=== PATIENT | female | born 1985 | race Caucasian/White ===

== ENCOUNTER 2016-08-29 14:57 | Emergency (ER) | payer OTHER ==
[~2016-08-29 14:57] MED LIST: MOTR200T44 PO; TYLE167L PO
[2016-08-29] MEDS ORDERED: CIPROFLOXACIN 500 MG TAB As Ordered ONE (18:37)
--- NOTE | 2016-08-29 18:44 | EDDOCDS ---
Physician Documentation [facility] Name: Zee Hope Age: 31 yrs Sex: Female : 1985 Arrival Date: 08/29/2016 Time: 14:57 Bed I6 / 28 Private MD: Gerber Flores R. Disposition: 08/29/16 18:33 Discharged to Home/Self Care. Impression: Urinary tract infection, site not specified, Strain of muscle, fascia and tendon of abdomen. - Condition is Stable. - Discharge Instructions: Muscle Strain, Urinary Tract Infection. - Prescriptions for Cipro 500 mg Oral Tablet - take 1 tablet by ORAL route every 12 hours; 10 tablet. - Medication Reconciliation, Local Pharmacy Hours form. - Follow up: Gerber Flores; When: Call to arrange an appointment; Reason: Recheck today's complaints, Continuance of care. - Problem is new. - Symptoms are unchanged. Historical: - Allergies: no known allergies; - Home Meds: 1. none - PMHx: Kidney stones; - PSHx: Tonsillectomy; Tubal ligation; wisdom teeth extraction; lithroscopy; - Social history: Smoking status: Patient states was never smoker of tobacco. No barriers to communication noted, The patient speaks fluent Pashto, Speaks appropriately for age. - Family history: Not pertinent. - : The pt / caregiver states he / she is not on anticoagulants. Home medication list is obtained from the patient. - Exposure Risk Screening:: None identified. 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 4 in. (162.56 cm); Pain 4/10; 18:41 BP 140 / 75; Pulse 80; Resp 18; Temp 99.5(TE); Pulse Ox 100% on R/A; Pain 5/10; ar3 14:58 Body Mass Index 20.08 (53.07 kg, 162.56 cm) ct3 MDM: 17:48 UCG by Nursing ordered. mo1 17:50 UA Ordered. EDMS 17:50 Urine Culture Ordered. EDMS 18:08 Financial registration complete. gjb 18:11 UA Reviewed. mo1 18:14 [facility] Payment Agreement was scanned into [employer] and attached to record. gjb 18:33 Ciprofloxacin 500 mg PO once ordered. mo1 Point of Care Testing: Urine : 17:53 hCG Reading: Negative; Control Reading: Positive; ar3 Ranges: Administered Medications: 18:40 Drug: Ciprofloxacin 500 mg [ciprofloxacin 500 mg tablet (1 tabs)] Route: PO; kr3 Signatures: Dispatcher MedHost Jaylin Echeverria RN RN srm Kamini Traore RN RN kr3 Matti Bianchi PA PA mo1 Kathryn Ferris The chart was reviewed and I authenticate all verbal orders and agree with the evaluation and treatment provided.Attachments: 18:14 [facility] Payment Agreement gjisma MTDD
--- NOTE | 2016-08-29 18:44 | EDDOCDS ---
Nurse's Notes [facility] Name: Zee Hope Age: 31 yrs Sex: Female : 1985 Arrival Date: 08/29/2016 Time: 14:57 Bed I6 / 28 Private MD: Gerber Flores R. Diagnosis: Urinary tract infection, site not specified;Strain of muscle, fascia and tendon of abdomen Presentation: 08/29 15:08 Presenting complaint: Patient states: mid abdominal pain after 2 days of using ab srm exercising. feels bruised. symptoms for 5 days. occasional nausea, no vomiting or diarrhea. no abnormal vaginal bleeding. feels bloated. Risk factors: the patient reports no vaginal bleeding. Adult Sepsis Screening: The patient does not have new or worsening altered mentation. Patient's respiratory rate is less than 22. Systolic blood pressure is greater than 100. Patient has a qSOFA score of 0- Negative Sepsis Screen. Suicide/Homicide risk assessment- the patient denies having any suicidal and/or homicidal ideations and does not present with any other emotional, behavioral or mental health complaints. Status: Patient is not a service desk lead or dependent. Transition of care: patient was not received from another setting of care. 15:08 Acuity: SATHYA Level 4 [facility] 15:08 Method Of Arrival: Walkin/Carried/Asstd [facility] Triage Assessment: 15:10 General: Appears in no apparent distress, Behavior is appropriate for age, cooperative. srm Pain: Pain currently is 8 out of 10 on a pain scale. GI: Reports lower abdominal pain, upper abd pain. 15:11 HIV screening NA for this visit Offered previously. 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 none - PMHx: Kidney stones; - PSHx: Tonsillectomy; Tubal ligation; wisdom teeth extraction; lithroscopy; - Social history: Smoking status: Patient states was never smoker of tobacco. No barriers to communication noted, The patient speaks fluent Gambian, Speaks appropriately for age. - Family history: Not pertinent. - : The pt / caregiver states he / she is not on anticoagulants. Home medication list is obtained from the patient. - Exposure Risk Screening:: None identified. Screenin:41 Screening information is obtained from the patient. Fall risk: No risks identified. kr3 Assistance ADL's: requires no assistance with activities of daily living. Abuse/DV Screen: The patient / caregiver reports he/she is: not in a situation that causes fear, pain or injury. Nutritional screening: No deficits noted. Advance Directives: Currently, there is no health care proxy. home support is adequate. Assessment: 18:40 General: Appears in no apparent distress, comfortable, Behavior is cooperative. Pain: kr3 Location: back Pain currently is 5 out of 10 on a pain scale. Neurological: Level of Consciousness is awake, alert. GI: Abdomen is non- distended deferred to provider deferred to provider. : Denies burning with urination. Derm: Skin is pink, warm & dry. Vital Signs: 14:58 BP 132 / 64; Pulse 95; Resp 18; Temp 98.3(O); Pulse Ox 100% on R/A; Weight 53.07 kg ct3 (R); Height 5 ft. 4 in. (162.56 cm); Pain 4/10; 18:41 BP 140 / 75; Pulse 80; Resp 18; Temp 99.5(TE); Pulse Ox 100% on R/A; Pain 5/10; ar3 14:58 Body Mass Index 20.08 (53.07 kg, 162.56 cm) ct3 Vitals: 14:58 Log In Time: August 29, 2016 at 14:56. ct3 ED Course: 14:58 Patient visited by Shivani Mina PCA. ct3 14:58 Gerber Flores is Private Physician. ct3 14:58 Patient moved to Waiting ct3 15:00 Patient moved to Pre RCE ct3 15:09 Triage Initiated srm 17:16 Samira Martinez,RN is Primary Nurse. ar3 17:16 Kamini Traore,CHAPO is Primary Nurse. ar3 17:16 Patient moved to Triage 1 ar3 17:31 Matti Bianchi PA is PHCP. mo1 17:31 Lio Joiner MD is Attending Physician. mo1 17:34 Patient visited by Matti Bianchi PA. mo1 17:52 Urine Culture Sent. ar3 17:52 UA Sent. ar3 17:53 Patient visited by Jeanie Chopra PCA. ar3 17:53 Patient moved to TR2 ar3 18:14 [facility] Payment Agreement was scanned into [employer] and attached to record. gjb 18:27 Patient name changed from Zee\S\\S\Herminia\S\ to Zee\S\ \S\Herminia. EDMS 18:33 Gerber Flores is Referral Physician. mo1 18:36 Patient moved to kr3 18:41 Patient visited by Jeanie Chopra PCA. ar3 18:41 The patient / caregiver is instructed regarding the plan of care and ED course. Patient kr3 has correct armband on for positive identification. 18:41 No IV's were initiated during this patient's visit. No procedures done that require kr3 assistance. Administered Medications: 18:40 Drug: Ciprofloxacin 500 mg [ciprofloxacin 500 mg tablet (1 tabs)] Route: PO; kr3 Point of Care Testing: Urine : 17:53 hCG Reading: Negative; Control Reading: Positive; ar3 Ranges: Order Results: Lab Order: UA; SPEC'M 08/29/16 17:50 Test: APPEARANCE, URINE; Value: HAZY; Range: CLEAR; Status: F Test: COLOR, URINE; Value: YELLOW; Range: YELLOW; Status: F Test: PH,URINE; Value: 5.0; Range: 5.0-9.0; Units: UNITS; Status: F Test: SPECIFIC GRAVITY URINE AUTO; Value: 1.025; Range: 1.002-1.035; Status: F Test: PROTEIN, URINE AUTO; Value: NEGATIVE; Range: NEGATIVE; Units: mg/dL; Status: F Test: GLUCOSE, URINE (UA) AUTO; Value: NEGATIVE; Range: NEGATIVE; Units: mg/dL; Status: F Test: KETONE, URINE AUTO; Value: NEGATIVE; Range: NEGATIVE; Units: mg/dL; Status: F Test: UROBILINOGEN, URINE AUTO; Value: 0.2; Range: 0.0-2.0; Units: mg/dL; Status: F Test: BILIRUBIN, URINE AUTO; Value: NEGATIVE; Range: NEGATIVE; Status: F Test: NITRITE, URINE AUTO; Value: NEGATIVE; Range: NEGATIVE; Status: F Test: LEUKOCYTE ESTERASE, URINE AUTO; Value: 1+; Range: NEGATIVE; Abnormal: Above high normal; Status: F Test: BLOOD, URINE BLOOD; Value: NEGATIVE; Range: NEGATIVE; Status: F Test: WBC, URINE AUTO; Value: 5; Range: 0-3; Abnormal: Above high normal; Units: /HPF; Status: F Test: RBC, URINE AUTO; Value: 3; Range: 0-3; Units: /HPF; Status: F Test: BACTERIA, URINE AUTO; Value: 1+; Range: NEGATIVE; Abnormal: Above high normal; Status: F Test: SQUAMOUS EPITHELIAL CELL UR AU; Value: 11; Range: 0-6; Units: /HPF; Status: F Test: MUCUS, URINE; Value: SMALL; Range: NEGATIVE; Status: F Test: HYALINE CAST, URINE AUTO; Value: 0; Range: 0-1; Units: /LPF; Status: F Outcome: 18:33 Discharge ordered by Provider. mo1 18:42 Discharge Assessment: patient administered narcotics - no. The following High Risk kr3 Discharge criteria are identified: None. Discharged to home ambulatory. Condition: stable. Discharge instructions given to patient, Instructed on discharge instructions, follow up and referral plans. medication usage, Demonstrated understanding of instructions, medications, Pt was receptive of discharge instructions/ teaching. Prescriptions given X 1. No special radiology studies were completed. Property sent home with patient. 18:42 Patient left the ED. kr3 Signatures: Dispatcher MedHost EDMS Jaylin Mullins RN Kamini Mosquera RN RN kr3 Jeanie Chopra, BRIM AND CROWN PRESSER BRIM AND CROWN PRESSER ar3 Shivani Mina, [employer]IM [employer] CROWN PRESSER BRIM AND CROWN PRESSER ct3 Matti Bianchi PA PA mo1 Kathryn Ferris MTDD
--- NOTE | 2016-08-31 19:43 | EDDOCDS ---
Physician Documentation [facility] Name: Zee Hope Age: 31 yrs Sex: Female : 1985 Arrival Date: 08/29/2016 Time: 14:57 Bed I6 / 28 Private MD: Gerber Flores R. Disposition: 08/29/16 18:33 Discharged to Home/Self Care. Impression: Urinary tract infection, site not specified, Strain of muscle, fascia and tendon of abdomen. - Condition is Stable. - Discharge Instructions: Muscle Strain, Urinary Tract Infection. - Prescriptions for Cipro 500 mg Oral Tablet - take 1 tablet by ORAL route every 12 hours; 10 tablet. - Medication Reconciliation, Local Pharmacy Hours form. - Follow up: Gerber Flores; When: Call to arrange an appointment; Reason: Recheck today's complaints, Continuance of care. - Problem is new. - Symptoms are unchanged. Historical: - Allergies: no known allergies; - Home Meds: 1. none - PMHx: Kidney stones; - PSHx: Tonsillectomy; Tubal ligation; wisdom teeth extraction; lithroscopy; - Social history: Smoking status: Patient states was never smoker of tobacco. No barriers to communication noted, The patient speaks fluent Slovak, Speaks appropriately for age. - Family history: Not pertinent. - : The pt / caregiver states he / she is not on anticoagulants. Home medication list is obtained from the patient. - Exposure Risk Screening:: None identified. 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 4 in. (162.56 cm); Pain 4/10; 18:41 BP 140 / 75; Pulse 80; Resp 18; Temp 99.5(TE); Pulse Ox 100% on R/A; Pain 5/10; ar3 14:58 Body Mass Index 20.08 (53.07 kg, 162.56 cm) ct3 MDM: 17:48 UCG by Nursing ordered. mo1 17:50 UA Ordered. EDMS 17:50 Urine Culture Ordered. EDMS 18:08 Financial registration complete. gjb 18:11 UA Reviewed. mo1 18:14 [facility] Payment Agreement was scanned into [employer] and attached to record. gjb 18:33 Ciprofloxacin 500 mg PO once ordered. mo1 08/30 10:30 T-Sheet-- Draft Copy was scanned into [employer] and attached to record. mala Point of Care Testing: Urine : 08/29 17:53 hCG Reading: Negative; Control Reading: Positive; ar3 Ranges: Administered Medications: 18:40 Drug: Ciprofloxacin 500 mg [ciprofloxacin 500 mg tablet (1 tabs)] Route: PO; kr3 Signatures: Dispatcher MedHost EDMS Jaylin Mullins RN RN srm Ester Montano Reg Reg gb Robie, Kathleen, RN RN kr3 Matti Bianchi PA PA mo1 Kathryn Ferris The chart was reviewed and I authenticate all verbal orders and agree with the evaluation and treatment provided.Attachments: 18:14 [facility] Payment Agreement gjb 08/30 10:30 T-Sheet-- Draft Copy gb Chart Complete MTDD
--- NOTE | 2016-08-31 19:43 | EDDOCDS ---
Physician Documentation [facility] Name: Zee Hope Age: 31 yrs Sex: Female : 1985 Arrival Date: 08/29/2016 Time: 14:57 Bed I6 / 28 Private MD: Gerber Flores R. Disposition: 08/29/16 18:33 Discharged to Home/Self Care. Impression: Urinary tract infection, site not specified, Strain of muscle, fascia and tendon of abdomen. - Condition is Stable. - Discharge Instructions: Muscle Strain, Urinary Tract Infection. - Prescriptions for Cipro 500 mg Oral Tablet - take 1 tablet by ORAL route every 12 hours; 10 tablet. - Medication Reconciliation, Local Pharmacy Hours form. - Follow up: Gerber Flores; When: Call to arrange an appointment; Reason: Recheck today's complaints, Continuance of care. - Problem is new. - Symptoms are unchanged. Historical: - Allergies: no known allergies; - Home Meds: 1. none - PMHx: Kidney stones; - PSHx: Tonsillectomy; Tubal ligation; wisdom teeth extraction; lithroscopy; - Social history: Smoking status: Patient states was never smoker of tobacco. No barriers to communication noted, The patient speaks fluent Faroese, Speaks appropriately for age. - Family history: Not pertinent. - : The pt / caregiver states he / she is not on anticoagulants. Home medication list is obtained from the patient. - Exposure Risk Screening:: None identified. 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 4 in. (162.56 cm); Pain 4/10; 18:41 BP 140 / 75; Pulse 80; Resp 18; Temp 99.5(TE); Pulse Ox 100% on R/A; Pain 5/10; ar3 14:58 Body Mass Index 20.08 (53.07 kg, 162.56 cm) ct3 MDM: 17:48 UCG by Nursing ordered. mo1 17:50 UA Ordered. EDMS 17:50 Urine Culture Ordered. EDMS 18:08 Financial registration complete. gjb 18:11 UA Reviewed. mo1 18:14 [facility] Payment Agreement was scanned into [employer] and attached to record. gjb 18:33 Ciprofloxacin 500 mg PO once ordered. mo1 08/30 10:30 T-Sheet-- Draft Copy was scanned into [employer] and attached to record. mala Point of Care Testing: Urine : 08/29 17:53 hCG Reading: Negative; Control Reading: Positive; ar3 Ranges: Administered Medications: 18:40 Drug: Ciprofloxacin 500 mg [ciprofloxacin 500 mg tablet (1 tabs)] Route: PO; kr3 Signatures: Dispatcher [employer]Host EDMS Jaylin Mullins RN RN srm Ester Montano Reg Reg gb Robie, Kathleen, RN RN kr3 Matti Bianchi PA PA mo1 Kathryn Ferris The chart was reviewed and I authenticate all verbal orders and agree with the evaluation and treatment provided.Attachments: 18:14 [facility] Payment Agreement gjb 08/30 10:30 T-Sheet-- Draft Copy gb Chart Complete MTDD
--- NOTE | 2016-08-31 19:43 | EDDOCDS ---
Nurse's Notes [facility] Name: Zee Hope Age: 31 yrs Sex: Female : 1985 Arrival Date: 08/29/2016 Time: 14:57 Bed I6 / 28 Private MD: Gerber Flores R. Diagnosis: Urinary tract infection, site not specified;Strain of muscle, fascia and tendon of abdomen Presentation: 08/29 15:08 Presenting complaint: Patient states: mid abdominal pain after 2 days of using ab srm exercising. feels bruised. symptoms for 5 days. occasional nausea, no vomiting or diarrhea. no abnormal vaginal bleeding. feels bloated. Risk factors: the patient reports no vaginal bleeding. Adult Sepsis Screening: The patient does not have new or worsening altered mentation. Patient's respiratory rate is less than 22. Systolic blood pressure is greater than 100. Patient has a qSOFA score of 0- Negative Sepsis Screen. Suicide/Homicide risk assessment- the patient denies having any suicidal and/or homicidal ideations and does not present with any other emotional, behavioral or mental health complaints. Status: Patient is not a cloud services architect or dependent. Transition of care: patient was not received from another setting of care. 15:08 Acuity: SATHYA Level 4 [facility] 15:08 Method Of Arrival: Walkin/Carried/Asstd [facility] Triage Assessment: 15:10 General: Appears in no apparent distress, Behavior is appropriate for age, cooperative. srm Pain: Pain currently is 8 out of 10 on a pain scale. GI: Reports lower abdominal pain, upper abd pain. 15:11 HIV screening NA for this visit Offered previously. 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 none - PMHx: Kidney stones; - PSHx: Tonsillectomy; Tubal ligation; wisdom teeth extraction; lithroscopy; - Social history: Smoking status: Patient states was never smoker of tobacco. No barriers to communication noted, The patient speaks fluent South Korean, Speaks appropriately for age. - Family history: Not pertinent. - : The pt / caregiver states he / she is not on anticoagulants. Home medication list is obtained from the patient. - Exposure Risk Screening:: None identified. Screenin:41 Screening information is obtained from the patient. Fall risk: No risks identified. kr3 Assistance ADL's: requires no assistance with activities of daily living. Abuse/DV Screen: The patient / caregiver reports he/she is: not in a situation that causes fear, pain or injury. Nutritional screening: No deficits noted. Advance Directives: Currently, there is no health care proxy. home support is adequate. Assessment: 18:40 General: Appears in no apparent distress, comfortable, Behavior is cooperative. Pain: kr3 Location: back Pain currently is 5 out of 10 on a pain scale. Neurological: Level of Consciousness is awake, alert. GI: Abdomen is non- distended deferred to provider deferred to provider. : Denies burning with urination. Derm: Skin is pink, warm & dry. Vital Signs: 14:58 BP 132 / 64; Pulse 95; Resp 18; Temp 98.3(O); Pulse Ox 100% on R/A; Weight 53.07 kg ct3 (R); Height 5 ft. 4 in. (162.56 cm); Pain 4/10; 18:41 BP 140 / 75; Pulse 80; Resp 18; Temp 99.5(TE); Pulse Ox 100% on R/A; Pain 5/10; ar3 14:58 Body Mass Index 20.08 (53.07 kg, 162.56 cm) ct3 Vitals: 14:58 Log In Time: August 29, 2016 at 14:56. ct3 ED Course: 14:58 Patient visited by Shivani Mina PCA. ct3 14:58 Gerber Flores is Private Physician. ct3 14:58 Patient moved to Waiting ct3 15:00 Patient moved to Pre RCE ct3 15:09 Triage Initiated srm 17:16 Samira Martinez,RN is Primary Nurse. ar3 17:16 Kamini Traore,CHAPO is Primary Nurse. ar3 17:16 Patient moved to Triage 1 ar3 17:31 Matti Bianchi PA is PHCP. mo1 17:31 Lio Joiner MD is Attending Physician. mo1 17:34 Patient visited by Matti Bianchi PA. mo1 17:52 Urine Culture Sent. ar3 17:52 UA Sent. ar3 17:53 Patient visited by Jeanie Chopra PCA. ar3 17:53 Patient moved to TR2 ar3 18:14 [facility] Payment Agreement was scanned into [employer] and attached to record. gjb 18:27 Patient name changed from Zee\S\\S\Herminia\S\ to Zee\S\ \S\Herminia. EDMS 18:33 Gerber Flores is Referral Physician. mo1 18:36 Patient moved to kr3 18:41 Patient visited by Jeanie Chopra PCA. ar3 18:41 The patient / caregiver is instructed regarding the plan of care and ED course. Patient kr3 has correct armband on for positive identification. 18:41 No IV's were initiated during this patient's visit. No procedures done that require kr3 assistance. 08/30 10:30 T-Sheet-- Draft Copy was scanned into [employer] and attached to record. gb Administered Medications: 08/29 18:40 Drug: Ciprofloxacin 500 mg [ciprofloxacin 500 mg tablet (1 tabs)] Route: PO; kr3 Point of Care Testing: Urine : 17:53 hCG Reading: Negative; Control Reading: Positive; ar3 Ranges: Order Results: Lab Order: UA; SPEC'M 08/29/16 17:50 Test: APPEARANCE, URINE; Value: HAZY; Range: CLEAR; Status: F Test: COLOR, URINE; Value: YELLOW; Range: YELLOW; Status: F Test: PH,URINE; Value: 5.0; Range: 5.0-9.0; Units: UNITS; Status: F Test: SPECIFIC GRAVITY URINE AUTO; Value: 1.025; Range: 1.002-1.035; Status: F Test: PROTEIN, URINE AUTO; Value: NEGATIVE; Range: NEGATIVE; Units: mg/dL; Status: F Test: GLUCOSE, URINE (UA) AUTO; Value: NEGATIVE; Range: NEGATIVE; Units: mg/dL; Status: F Test: KETONE, URINE AUTO; Value: NEGATIVE; Range: NEGATIVE; Units: mg/dL; Status: F Test: UROBILINOGEN, URINE AUTO; Value: 0.2; Range: 0.0-2.0; Units: mg/dL; Status: F Test: BILIRUBIN, URINE AUTO; Value: NEGATIVE; Range: NEGATIVE; Status: F Test: NITRITE, URINE AUTO; Value: NEGATIVE; Range: NEGATIVE; Status: F Test: LEUKOCYTE ESTERASE, URINE AUTO; Value: 1+; Range: NEGATIVE; Abnormal: Above high normal; Status: F Test: BLOOD, URINE BLOOD; Value: NEGATIVE; Range: NEGATIVE; Status: F Test: WBC, URINE AUTO; Value: 5; Range: 0-3; Abnormal: Above high normal; Units: /HPF; Status: F Test: RBC, URINE AUTO; Value: 3; Range: 0-3; Units: /HPF; Status: F Test: BACTERIA, URINE AUTO; Value: 1+; Range: NEGATIVE; Abnormal: Above high normal; Status: F Test: SQUAMOUS EPITHELIAL CELL UR AU; Value: 11; Range: 0-6; Units: /HPF; Status: F Test: MUCUS, URINE; Value: SMALL; Range: NEGATIVE; Status: F Test: HYALINE CAST, URINE AUTO; Value: 0; Range: 0-1; Units: /LPF; Status: F Lab Order: Urine Culture; SPEC'M 08/29/16 17:50 Test: URINE CULTURE; Value: <EXTERNAL COMMENT eCWMed> FULL REPORT IN LAB NOTES (eCW and Medent).; Status: F Test: URINE CULTURE; Value: ORGANISM 1: STREP AGALACTIAE GROUP B; Status: F Test: URINE CULTURE; Value: STREP AGALACTIAE GROUP B; Status: F Test: URINE CULTURE; Value: COLONY COUNT CFU/ml 15,000; Status: F Test: URINE CULTURE; Value: GRAM POS SENSI - ST02; Status: F Test: URINE CULTURE; Value: Method: VIT2; Status: F Test: URINE CULTURE; Value: ICR (INDUCIBLE CC RESISTANCE) -; Status: F Test: URINE CULTURE; Value: TETRACYCLINE 0.5 S; Status: F Test: URINE CULTURE; Value: PENICILLIN G <=0.06 S; Status: F Test: URINE CULTURE; Value: TRIMETHOPRIM/SULFAMETHOXAZOLE <=10 S; Status: F Test: URINE CULTURE; Value: AMPICILLIN <=0.25 S; Status: F Test: URINE CULTURE; Value: ERYTHROMYCIN <=0.12 S; Status: F Test: URINE CULTURE; Value: LEVOFLOXACIN 1 S; Status: F Test: URINE CULTURE; Value: VANCOMYCIN 0.5 S; Status: F Test: URINE CULTURE; Value: MOXIFLOXACIN (AVELOX) 0.25 S; Status: F Test: URINE CULTURE; Value: CEFTRIAXONE <=0.12 S; Status: F Test: URINE CULTURE; Value: CEFOTAXIME <=0.12 S; Status: F Outcome: 18:33 Discharge ordered by Provider. mo1 18:42 Discharge Assessment: patient administered narcotics - no. The following High Risk kr3 Discharge criteria are identified: None. Discharged to home ambulatory. Condition: stable. Discharge instructions given to patient, Instructed on discharge instructions, follow up and referral plans. medication usage, Demonstrated understanding of instructions, medications, Pt was receptive of discharge instructions/ teaching. Prescriptions given X 1. No special radiology studies were completed. Property sent home with patient. 18:42 Patient left the ED. kr3 Signatures: Dispatcher [employer] EDMS Jaylin Mullins RN RN srm Barnhardt, Gloria, Kamini Manuel RN RN kr3 Jeanie Chopra, JUDGE JUDGE ar3 Shivani Mina, JUDGE JUDGE ct3 Matti Bianchi PA PA mo1 Kathryn Ferris Chart Complete SANJAY
--- NOTE | 2016-09-01 16:39 | EDDOCDS ---
Nurse's Notes [facility] Name: Zee Hope Age: 31 yrs Sex: Female : 1985 Arrival Date: 08/29/2016 Time: 14:57 Bed I6 / 28 Private MD: Gerber Flores R. Diagnosis: Urinary tract infection, site not specified;Strain of muscle, fascia and tendon of abdomen Presentation: 08/29 15:08 Presenting complaint: Patient states: mid abdominal pain after 2 days of using ab srm exercising. feels bruised. symptoms for 5 days. occasional nausea, no vomiting or diarrhea. no abnormal vaginal bleeding. feels bloated. Risk factors: the patient reports no vaginal bleeding. Adult Sepsis Screening: The patient does not have new or worsening altered mentation. Patient's respiratory rate is less than 22. Systolic blood pressure is greater than 100. Patient has a qSOFA score of 0- Negative Sepsis Screen. Suicide/Homicide risk assessment- the patient denies having any suicidal and/or homicidal ideations and does not present with any other emotional, behavioral or mental health complaints. 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 Transition of care: patient was not received from another setting of care. 15:08 Acuity: SATHYA Level 4 [facility] 15:08 Method Of Arrival: Walkin/Carried/Asstd [facility] Triage Assessment: 15:10 General: Appears in no apparent distress, Behavior is appropriate for age, cooperative. srm Pain: Pain currently is 8 out of 10 on a pain scale. GI: Reports lower abdominal pain, upper abd pain. 15:11 HIV screening NA for this visit Offered previously. 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 none - PMHx: Kidney stones; - PSHx: Tonsillectomy; Tubal ligation; wisdom teeth extraction; lithroscopy; - Social history: Smoking status: Patient states was never smoker of tobacco. No barriers to communication noted, The patient speaks fluent Irish, Speaks appropriately for age. - Family history: Not pertinent. - : The pt / caregiver states he / she is not on anticoagulants. Home medication list is obtained from the patient. - Exposure Risk Screening:: None identified. Screenin:41 Screening information is obtained from the patient. Fall risk: No risks identified. kr3 Assistance ADL's: requires no assistance with activities of daily living. Abuse/DV Screen: The patient / caregiver reports he/she is: not in a situation that causes fear, pain or injury. Nutritional screening: No deficits noted. Advance Directives: Currently, there is no health care proxy. home support is adequate. Assessment: 18:40 General: Appears in no apparent distress, comfortable, Behavior is cooperative. Pain: kr3 Location: back Pain currently is 5 out of 10 on a pain scale. Neurological: Level of Consciousness is awake, alert. GI: Abdomen is non- distended deferred to provider deferred to provider. : Denies burning with urination. Derm: Skin is pink, warm & dry. Vital Signs: 14:58 BP 132 / 64; Pulse 95; Resp 18; Temp 98.3(O); Pulse Ox 100% on R/A; Weight 53.07 kg ct3 (R); Height 5 ft. 4 in. (162.56 cm); Pain 4/10; 18:41 BP 140 / 75; Pulse 80; Resp 18; Temp 99.5(TE); Pulse Ox 100% on R/A; Pain 5/10; ar3 14:58 Body Mass Index 20.08 (53.07 kg, 162.56 cm) ct3 Vitals: 14:58 Log In Time: August 29, 2016 at 14:56. ct3 ED Course: 14:58 Patient visited by Shivani Mina PCA. ct3 14:58 Gerber Flores is Private Physician. ct3 14:58 Patient moved to Waiting ct3 15:00 Patient moved to Pre RCE ct3 15:09 Triage Initiated srm 17:16 Samira Martinez,RN is Primary Nurse. ar3 17:16 Kamini Traore,CHAPO is Primary Nurse. ar3 17:16 Patient moved to Triage 1 ar3 17:31 Matti Bianchi PA is PHCP. mo1 17:31 Lio Joiner MD is Attending Physician. mo1 17:34 Patient visited by Matti Bianchi PA. mo1 17:52 Urine Culture Sent. ar3 17:52 UA Sent. ar3 17:53 Patient visited by Jeanie Chopra PCA. ar3 17:53 Patient moved to TR2 ar3 18:14 [facility] Payment Agreement was scanned into [employer] and attached to record. gjb 18:27 Patient name changed from Zee\S\\S\Herminia\S\ to Zee\S\ \S\[place]. EDMS 18:33 Gerber Flores is Referral Physician. mo1 18:36 Patient moved to kr3 18:41 Patient visited by Jeanie Chopra PCA. ar3 18:41 The patient / caregiver is instructed regarding the plan of care and ED course. Patient kr3 has correct armband on for positive identification. 18:41 No IV's were initiated during this patient's visit. No procedures done that require kr3 assistance. 08/30 10:30 T-Sheet-- Draft Copy was scanned into [employer] and attached to record. gb Administered Medications: 08/29 18:40 Drug: Ciprofloxacin 500 mg [ciprofloxacin 500 mg tablet (1 tabs)] Route: PO; kr3 Point of Care Testing: Urine : 17:53 hCG Reading: Negative; Control Reading: Positive; ar3 Ranges: Order Results: Lab Order: UA; SPEC'M 08/29/16 17:50 Test: APPEARANCE, URINE; Value: HAZY; Range: CLEAR; Status: F Test: COLOR, URINE; Value: YELLOW; Range: YELLOW; Status: F Test: PH,URINE; Value: 5.0; Range: 5.0-9.0; Units: UNITS; Status: F Test: SPECIFIC GRAVITY URINE AUTO; Value: 1.025; Range: 1.002-1.035; Status: F Test: PROTEIN, URINE AUTO; Value: NEGATIVE; Range: NEGATIVE; Units: mg/dL; Status: F Test: GLUCOSE, URINE (UA) AUTO; Value: NEGATIVE; Range: NEGATIVE; Units: mg/dL; Status: F Test: KETONE, URINE AUTO; Value: NEGATIVE; Range: NEGATIVE; Units: mg/dL; Status: F Test: UROBILINOGEN, URINE AUTO; Value: 0.2; Range: 0.0-2.0; Units: mg/dL; Status: F Test: BILIRUBIN, URINE AUTO; Value: NEGATIVE; Range: NEGATIVE; Status: F Test: NITRITE, URINE AUTO; Value: NEGATIVE; Range: NEGATIVE; Status: F Test: LEUKOCYTE ESTERASE, URINE AUTO; Value: 1+; Range: NEGATIVE; Abnormal: Above high normal; Status: F Test: BLOOD, URINE BLOOD; Value: NEGATIVE; Range: NEGATIVE; Status: F Test: WBC, URINE AUTO; Value: 5; Range: 0-3; Abnormal: Above high normal; Units: /HPF; Status: F Test: RBC, URINE AUTO; Value: 3; Range: 0-3; Units: /HPF; Status: F Test: BACTERIA, URINE AUTO; Value: 1+; Range: NEGATIVE; Abnormal: Above high normal; Status: F Test: SQUAMOUS EPITHELIAL CELL UR AU; Value: 11; Range: 0-6; Units: /HPF; Status: F Test: MUCUS, URINE; Value: SMALL; Range: NEGATIVE; Status: F Test: HYALINE CAST, URINE AUTO; Value: 0; Range: 0-1; Units: /LPF; Status: F Lab Order: Urine Culture; SPEC'M 08/29/16 17:50 Test: URINE CULTURE; Value: <EXTERNAL COMMENT eCWMed> FULL REPORT IN LAB NOTES (eCW and Medent).; Status: F Test: URINE CULTURE; Value: ORGANISM 1: STREP AGALACTIAE GROUP B; Status: F Test: URINE CULTURE; Value: STREP AGALACTIAE GROUP B; Status: F Test: URINE CULTURE; Value: COLONY COUNT CFU/ml 15,000; Status: F Test: URINE CULTURE; Value: GRAM POS SENSI - ST02; Status: F Test: URINE CULTURE; Value: Method: VIT2; Status: F Test: URINE CULTURE; Value: ICR (INDUCIBLE CC RESISTANCE) -; Status: F Test: URINE CULTURE; Value: TETRACYCLINE 0.5 S; Status: F Test: URINE CULTURE; Value: PENICILLIN G <=0.06 S; Status: F Test: URINE CULTURE; Value: TRIMETHOPRIM/SULFAMETHOXAZOLE <=10 S; Status: F Test: URINE CULTURE; Value: AMPICILLIN <=0.25 S; Status: F Test: URINE CULTURE; Value: ERYTHROMYCIN <=0.12 S; Status: F Test: URINE CULTURE; Value: LEVOFLOXACIN 1 S; Status: F Test: URINE CULTURE; Value: VANCOMYCIN 0.5 S; Status: F Test: URINE CULTURE; Value: MOXIFLOXACIN (AVELOX) 0.25 S; Status: F Test: URINE CULTURE; Value: CEFTRIAXONE <=0.12 S; Status: F Test: URINE CULTURE; Value: CEFOTAXIME <=0.12 S; Status: F Outcome: 18:33 Discharge ordered by Provider. mo1 18:42 Discharge Assessment: patient administered narcotics - no. The following High Risk kr3 Discharge criteria are identified: None. Discharged to home ambulatory. Condition: stable. Discharge instructions given to patient, Instructed on discharge instructions, follow up and referral plans. medication usage, Demonstrated understanding of instructions, medications, Pt was receptive of discharge instructions/ teaching. Prescriptions given X 1. No special radiology studies were completed. Property sent home with patient. 18:42 Patient left the ED. kr3 Signatures: Dispatcher [employer] EDMS Jaylin Mullins RN RN srm Barnhardt, Gloria, Kamini Manuel RN RN kr3 Jeanie Chopra, PARTS DRIVER PARTS DRIVER ar3 Shivani Mina, PARTS DRIVER PARTS DRIVER ct3 Matti Bianchi PA PA mo1 Kathryn Ferris Chart Complete SANJAY
--- NOTE | 2016-09-01 16:39 | EDDOCDS ---
Physician Documentation [facility] Name: Zee Hope Age: 31 yrs Sex: Female : 1985 Arrival Date: 08/29/2016 Time: 14:57 Bed I6 / 28 Private MD: Gerber Flores R. Disposition: 08/29/16 18:33 Discharged to Home/Self Care. Impression: Urinary tract infection, site not specified, Strain of muscle, fascia and tendon of abdomen. - Condition is Stable. - Discharge Instructions: Muscle Strain, Urinary Tract Infection. - Prescriptions for Cipro 500 mg Oral Tablet - take 1 tablet by ORAL route every 12 hours; 10 tablet. - Medication Reconciliation, Local Pharmacy Hours form. - Follow up: Gerber Flores; When: Call to arrange an appointment; Reason: Recheck today's complaints, Continuance of care. - Problem is new. - Symptoms are unchanged. Historical: - Allergies: no known allergies; - Home Meds: 1. none - PMHx: Kidney stones; - PSHx: Tonsillectomy; Tubal ligation; wisdom teeth extraction; lithroscopy; - Social history: Smoking status: Patient states was never smoker of tobacco. No barriers to communication noted, The patient speaks fluent Divehi, Speaks appropriately for age. - Family history: Not pertinent. - : The pt / caregiver states he / she is not on anticoagulants. Home medication list is obtained from the patient. - Exposure Risk Screening:: None identified. 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 4 in. (162.56 cm); Pain 4/10; 18:41 BP 140 / 75; Pulse 80; Resp 18; Temp 99.5(TE); Pulse Ox 100% on R/A; Pain 5/10; ar3 14:58 Body Mass Index 20.08 (53.07 kg, 162.56 cm) ct3 MDM: 17:48 UCG by Nursing ordered. mo1 17:50 UA Ordered. EDMS 17:50 Urine Culture Ordered. EDMS 18:08 Financial registration complete. gjb 18:11 UA Reviewed. mo1 18:14 [facility] Payment Agreement was scanned into [employer] and attached to record. gjb 18:33 Ciprofloxacin 500 mg PO once ordered. mo1 08/30 10:30 T-Sheet-- Draft Copy was scanned into [employer] and attached to record. mala Point of Care Testing: Urine : 08/29 17:53 hCG Reading: Negative; Control Reading: Positive; ar3 Ranges: Administered Medications: 18:40 Drug: Ciprofloxacin 500 mg [ciprofloxacin 500 mg tablet (1 tabs)] Route: PO; kr3 Signatures: Dispatcher [employer] EDMS Jaylin Mullins RN RN srm Ester Montano Reg Reg gb Robie, Kathleen, RN RN kr3 Matti Bianchi PA PA mo1 Kathryn Ferris The chart was reviewed and I authenticate all verbal orders and agree with the evaluation and treatment provided.Attachments: 18:14 [facility] Payment Agreement gjb 08/30 10:30 T-Sheet-- Draft Copy gb Chart Complete MTDD
--- NOTE | 2016-09-01 16:39 | EDDOCDS ---
Physician Documentation [facility] Name: Zee Hope Age: 31 yrs Sex: Female : 1985 Arrival Date: 08/29/2016 Time: 14:57 Bed I6 / 28 Private MD: Gerber Flores R. Disposition: 08/29/16 18:33 Discharged to Home/Self Care. Impression: Urinary tract infection, site not specified, Strain of muscle, fascia and tendon of abdomen. - Condition is Stable. - Discharge Instructions: Muscle Strain, Urinary Tract Infection. - Prescriptions for Cipro 500 mg Oral Tablet - take 1 tablet by ORAL route every 12 hours; 10 tablet. - Medication Reconciliation, Local Pharmacy Hours form. - Follow up: Gerber Flores; When: Call to arrange an appointment; Reason: Recheck today's complaints, Continuance of care. - Problem is new. - Symptoms are unchanged. Historical: - Allergies: no known allergies; - Home Meds: 1. none - PMHx: Kidney stones; - PSHx: Tonsillectomy; Tubal ligation; wisdom teeth extraction; lithroscopy; - Social history: Smoking status: Patient states was never smoker of tobacco. No barriers to communication noted, The patient speaks fluent Bengali, Speaks appropriately for age. - Family history: Not pertinent. - : The pt / caregiver states he / she is not on anticoagulants. Home medication list is obtained from the patient. - Exposure Risk Screening:: None identified. 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 4 in. (162.56 cm); Pain 4/10; 18:41 BP 140 / 75; Pulse 80; Resp 18; Temp 99.5(TE); Pulse Ox 100% on R/A; Pain 5/10; ar3 14:58 Body Mass Index 20.08 (53.07 kg, 162.56 cm) ct3 MDM: 17:48 UCG by Nursing ordered. mo1 17:50 UA Ordered. EDMS 17:50 Urine Culture Ordered. EDMS 18:08 Financial registration complete. gjb 18:11 UA Reviewed. mo1 18:14 [facility] Payment Agreement was scanned into [id number] and attached to record. gjb 18:33 Ciprofloxacin 500 mg PO once ordered. mo1 08/30 10:30 T-Sheet-- Draft Copy was scanned into [id number] and attached to record. mala Point of Care Testing: Urine : 08/29 17:53 hCG Reading: Negative; Control Reading: Positive; ar3 Ranges: Administered Medications: 18:40 Drug: Ciprofloxacin 500 mg [ciprofloxacin 500 mg tablet (1 tabs)] Route: PO; kr3 Signatures: Dispatcher [employer] EDMS Jaylin Mullins RN RN srm Ester Montano Reg Reg gb Robie, Kathleen, RN RN kr3 Matti Bianchi PA PA mo1 Kathryn Ferris The chart was reviewed and I authenticate all verbal orders and agree with the evaluation and treatment provided.Attachments: 18:14 [facility] Payment Agreement gjb 08/30 10:30 T-Sheet-- Draft Copy gb Chart Complete MTDD
== END 2016-08-29 18:42 | disposition home or self-care (01) ==
LOC: M ED 14:57
DX: N39.0 Urinary tract infection, site not specified (principal); S39.011A Strain of muscle, fascia and tendon of abdomen, initial encounter; X58.XXXA Exposure to other specified factors, initial encounter; Y92.89 Other specified places as the place of occurrence of the external cause; Y93.B9 Activity, other involving muscle strengthening exercises; Y99.8 Other external cause status; Z87.442 Personal history of urinary calculi